=== PATIENT | female | born 1960 | race Caucasian/White ===

== ENCOUNTER → 2016-10-11 | Outpatient (CLI) | payer OTHER ==
[2016-10-11 09:56] LABS: ABSOLUTE EOSINOPHILS # (AUTO) 0.3 10^3/uL (0.0-0.6); ABSOLUTE LYMPHOCYTES (AUTO) 2.9 10^3/uL (0.5-4.7); ABSOLUTE MONOCYTES (AUTO) 0.5 10^3/uL (0.1-1.4); ABSOLUTE NEUT (AUTO) 4.5 10^3/uL (1.7-8.2); BASOPHILS % (AUTO) 0.6 % (0-2); EOSINOPHILS % (AUTO) 3.8 % (0-6); HEMOGLOBIN 13.4 g/dL (12.0-15.5); HGB HCT DIFFERENCE 0.2; LYMPHOCYTES % (AUTO) 35.3 % (13-45); MEAN CORPUSCULAR HEMOGLOBIN 27.8 pg (27.0-33.4); MEAN CORPUSCULAR HGB CONC 33.6 g/dL (32.0-36.0); MEAN CORPUSCULAR VOLUME 83 fl (80-97); MONOCYTES % (AUTO) 5.8 % (3-13); RED BLOOD COUNT 4.84 10^6/uL (3.72-5.28); RED CELL DISTRIBUTION WIDTH 13.7 % (11.5-14.0); SEGMENTED NEUTROPHILS % (AUTO) 54.5 % (42-78); WHITE BLOOD COUNT 8.2 10^3/uL (4.0-10.5)
[2016-10-11 10:13] LABS: ALANINE AMINOTRANSFERASE 35 U/L (9-52); ALBUMIN 4.1 g/dL (3.5-5.0); ALKALINE PHOSPHATASE 80 U/L (38-126); ANION GAP 11 (5-19); ASPARTATE AMINO TRANSFERASE 18 U/L (14-36); BILIRUBIN,TOTAL 0.4 mg/dL (0.2-1.3); BLOOD UREA NITROGEN 20 mg/dL (7-20); CALCIUM 10.1 mg/dL (8.4-10.2); CARBON DIOXIDE 25 mmol/L (22-30); CHLORIDE 104 mmol/L (98-107); CHOLESTEROL 219.25 mg/dL (0-200); CREATININE RESULT 0.75 mg/dL (0.52-1.25); Direct HDL 49 mg/dL (>40); GLUCOSE 113 mg/dL (75-110); POTASSIUM 4.5 mmol/L (3.6-5.0); SODIUM 140.2 mmol/L (137-145); TOTAL PROTEIN 7.7 g/dL (6.3-8.2); TRIGLYCERIDES 175 mg/dL (<150)
[2016-10-11 10:24] LABS: DIRECT LDL 148 mg/dL (<100)
[2016-10-11 10:29] LABS: FREE T3 3.65 pg/mL (2.77-5.27)
[2016-10-11 10:43] LABS: THYROID STIMULATING HORMONE 1.88 uIU/mL (0.47-4.68)
== END ==
LOC: LAB 09:17
PROVIDERS: ATTEND Family Medicine
DX: D64.9 Anemia, unspecified (principal); Z13.1 Encounter for screening for diabetes mellitus; E78.5 Hyperlipidemia, unspecified; E03.9 Hypothyroidism, unspecified; R73.09 Other abnormal glucose
CPT/HCPCS: 36415; 80048; 80061; 80076; 83036; 84439; 84443; 84481; 85025

== ENCOUNTER 2020-02-19 02:40 | Emergency (ER) | payer OTHER ==
[2020-02-19] MEDS ORDERED: ONDANSETRON HCL INJ/PF 4 MG/2 ML SDV IV ONE (04:24)
[2020-02-19 04:27] LABS: ABSOLUTE EOSINOPHILS # (AUTO) 0.1 10^3/uL (0.0-0.6); ABSOLUTE LYMPHOCYTES (AUTO) 2.3 10^3/uL (0.5-4.7); ABSOLUTE MONOCYTES (AUTO) 0.5 10^3/uL (0.1-1.4); ABSOLUTE NEUT (AUTO) 12.4 10^3/uL (1.7-8.2); BASOPHILS % (AUTO) 0.2 % (0-2); EOSINOPHILS % (AUTO) 0.4 % (0-6); HEMATOCRIT 39.1 % (36.0-47.0); HEMOGLOBIN 13.1 g/dL (12.0-15.5); LYMPHOCYTES % (AUTO) 14.9 % (13-45); MEAN CORPUSCULAR HEMOGLOBIN 27.9 pg (27.0-33.4); MEAN CORPUSCULAR HGB CONC 33.6 g/dL (32.0-36.0); MEAN CORPUSCULAR VOLUME 83 fl (80-97); MONOCYTES % (AUTO) 3.5 % (3-13); PLATELET COUNT 331 10^3/uL (150-450); RED BLOOD COUNT 4.71 10^6/uL (3.72-5.28); RED CELL DISTRIBUTION WIDTH 13.4 % (11.5-14.0); TOTAL CELLS COUNTED % (AUTO) 100 %; WHITE BLOOD COUNT 15.3 10^3/uL (4.0-10.5)
[2020-02-19 04:36] LABS: APPEARANCE,URINE CLEAR; BILIRUBIN,URINE NEGATIVE (NEGATIVE); COLOR,URINE YELLOW; GLUCOSE, URINE NEGATIVE (NEGATIVE); KETONES,URINE NEGATIVE (NEGATIVE); LEUKOCYTE ESTERASE,URINE TRACE (NEGATIVE); NITRITE,URINE NEGATIVE (NEGATIVE); PROTEIN,URINE 100 mg/dL (NEGATIVE); UROBILINOGEN,URINE NEGATIVE mg/dL (<2.0)
[2020-02-19 04:51] LABS: ALBUMIN 4.8 g/dL (3.5-5.0); ALKALINE PHOSPHATASE 67 U/L (38-126); ANION GAP 9 (5-19); ASPARTATE AMINO TRANSFERASE 21 U/L (14-36); BILIRUBIN,TOTAL 0.2 mg/dL (0.2-1.3); BLOOD UREA NITROGEN 15 mg/dL (7-20); CARBON DIOXIDE 26 mmol/L (22-30); CHLORIDE 102 mmol/L (98-107); GLUCOSE 165 mg/dL (75-110); POTASSIUM 4.5 mmol/L (3.6-5.0); TOTAL PROTEIN 7.9 g/dL (6.3-8.2)
[2020-02-19] MEDS ORDERED: NORMAL SALINE 1000 ML 1,000 ML IV ONE (05:54)
[2020-02-19] MEDS ORDERED: MORPHINE SULFATE 10 MG/ML INJ IV ONE ×2 (05:57→08:50)
--- NOTE | 2020-02-19 05:59 | ER Document Report ---
ED GI/ - General Mode of Arrival: Ambulatory Information source: Patient TRAVEL OUTSIDE OF THE [place] IN LAST 30 DAYS: No - HPI Patient complains to provider of: Abdominal pain, Other - Nausea but no vomiting Onset: Other - About 1130 Timing/Duration: Gradual, Persistent Quality of pain: Sharp Severity at maximum: Severe Severity in ED: Severe Pain Level: 5 Location: Epigastric, LUQ, LLQ, RUQ, RLQ Vaginal bleeding (Compared to normal period): None Menstrual period history: Post-menopausal - And hysterectomy Associated symptoms: Nausea. denies: Vomiting Exacerbated by: Movement Relieved by: Denies Similar symptoms previously: No Recently seen / treated by doctor: No <MARLO BALES - Last Filed: 02/19/20 05:55> <OBED PUENTES - Last Filed: 02/19/20 11:35> - General Chief Complaint: Abdominal Pain Stated Complaint: EPIGASTRIC PAIN Time Seen by Provider: 02/19/20 05:17 Primary Care Provider: LUCINA BEARD MD [Primary Care Provider] - Follow up as needed Notes: 59-year-old female presented to ED for complaint of severe sharp abdominal pain. She states it began about 1130 last night. She states that she ate about lasagna about 330 4:00 in the afternoon and then ate a snack chips at suppertime and then the pain started about 1130. She states the pain is not gotten any better she has felt nauseated a couple times has not vomited has not had any fevers chills or any difficulty with urination. She states she did have a loose stool yesterday but no stools today. (MARLO BALES) - Related Data Allergies/Adverse Reactions: No Known Allergies Allergy (Unverified 02/19/20 03:41) Past Medical History - General Information source: Patient - Social History Smoking Status: Never Smoker Chew tobacco use (# tins/day): No Frequency of alcohol use: Social Drug Abuse: None Lives with: Family Family History: Reviewed & Not Pertinent Patient has homicidal ideation: No - Past Medical History Cardiac Medical History: Reports: None Pulmonary Medical History: Reports: None EENT Medical History: Reports: None Neurological Medical History: Reports: None Endocrine Medical History: Reports: Hx Hypothyroidism Renal/ Medical History: Reports: None Malignancy Medical History: Reports: Hx Skin Cancer - Basal cell GI Medical History: Reports: Hx Colonoscopy Musculoskeletal Medical History: Reports Hx Arthritis, Reports Hx Musculoskeletal Trauma Skin Medical History: Reports None Psychiatric Medical History: Reports: None Traumatic Medical History: Reports: Hx Fractures - Toe Infectious Medical History: Reports: None Past Surgical History: Reports: Hx Hysterectomy, Hx Tubal Ligation <MARLO BALES Filed: 02/19/20 05:55> Review of Systems - Review of Systems Constitutional: No symptoms reported EENT: No symptoms reported Cardiovascular: No symptoms reported Respiratory: No symptoms reported Gastrointestinal: Abdominal pain, Nausea. denies: Vomiting Genitourinary: No symptoms reported Female Genitourinary: No symptoms reported Musculoskeletal: No symptoms reported Skin: No symptoms reported Hematologic/Lymphatic: No symptoms reported Neurological/Psychological: No symptoms reported -: Yes All other systems reviewed and negative <MARLO BALES Filed: 02/19/20 05:55> Physical Exam - Vital signs Interpretation: Normal - General General appearance: Appears well, Alert - HEENT Head: Normocephalic, Atraumatic Eyes: Normal Pupils: PERRL - Respiratory Respiratory status: No respiratory distress Chest status: Nontender Breath sounds: Normal Chest palpation: Normal - Cardiovascular Rhythm: Regular Heart sounds: Normal auscultation Murmur: No - Abdominal Inspection: Normal Distension: Distended - Mild Bowel sounds: Normal Tenderness: Tender - Generalized Organomegaly: No organomegaly - Back Back: Normal, Nontender - Extremities General upper extremity: Normal inspection, Nontender, Normal color, Normal ROM, Normal temperature General lower extremity: Normal inspection, Nontender, Normal color, Normal ROM, Normal temperature, Normal weight bearing. No: Ok's sign - Neurological Neuro grossly intact: Yes Cognition: Normal Orientation: AAOx4 Shayne Coma Scale Eye Opening: Spontaneous Shayne Coma Scale Verbal: Oriented [place]rop Coma Scale Motor: Obeys Commands Shayne Coma Scale Total: 15 Speech: Normal Motor strength normal: LUE, RUE, LLE, RLE Sensory: Normal - Psychological Associated symptoms: Normal affect, Normal mood - Skin Skin Temperature: Warm Skin Moisture: Dry Skin Color: Normal <MARLO BALES Filed: 02/19/20 05:55> - Vital signs Vitals: Temp Pulse Resp BP Pulse Ox 97.5 F 65 18 166/88 H 97 06/28/20 03:38 02/19/20 03:38 02/19/20 03:38 02/19/20 03:38 02/19/20 03:38 Course - Laboratory Result Diagrams: 02/19/20 04:13 02/19/20 04:13 <MARLO BALES - Last Filed: 02/19/20 05:55> - Laboratory Result Diagrams: 02/19/20 04:13 02/19/20 04:13 <OBED PUENTES - Last Filed: 02/19/20 11:35> - Re-evaluation Re-evalutation: 02/19/20 08:15 report received on the patient 02/19/20 08:50 Report received on the patient. I went to evaluate the patient initially she was in CT, when she was back in the room I did examine her. She reports onset of generalized abdominal pain around 11 PM last night with nausea vomiting. Pain is now focal in the epigastric right upper quadrant region. On exam she is tender in the right upper quadrant specifically. On my review of the patient CT it does appear that she has cholelithiasis. Awaiting official radiology read. Will obtain ultrasound to evaluate for an obstructing stone although her liver functions and lipase are normal. She does have a mild leukocytosis. She is still reporting pain will re-dose pain medication at this time 02/19/20 10:53 Patient is more comfortable at this time. Ultrasound shows cholelithiasis without evidence of cholecystitis. I spoke with the patient about this at length. She is comfortable with the plan to be discharged home to follow-up outpatient with surgery with return instructions given (OBED PUENTES) - Vital Signs Vital signs: Temp Pulse Resp BP Pulse Ox 97.5 F 84 20 122/80 95 02/19/20 03:38 02/19/20 06:54 02/19/20 06:54 02/19/20 06:54 02/19/20 06:54 - Laboratory Laboratory results interpreted by me: 02/19/20 02/19/20 02/19/20 04:13 04:13 04:13 WBC 15.3 H Absolute Neuts (auto) 12.4 H Seg Neutrophils % 81.0 H Glucose 165 H Urine Protein 100 H Urine Blood MODERATE H Ur Leukocyte Esterase TRACE H Discharge <MARLO BALES - Last Filed: 02/19/20 05:55> <OBED PUENTES - Last Filed: 02/19/20 11:35> - Discharge Clinical Impression: Abdominal pain, right upper quadrant Cholelithiasis Qualifiers: Cholelithiasis location: gallbladder Cholecystitis presence: without cholecystitis Biliary obstruction: without biliary obstruction Qualified Code(s): K80.20 - Calculus of gallbladder without cholecystitis without obstruction Condition: Stable Disposition: HOME, SELF-CARE Additional Instructions: Avoid greasy or spicy foods. Follow-up closely with surgery clinic for reevaluation call for appointment. Pain medications as prescribed no driving if taking narcotics for pain. It was noted on your exam today that you do have gallstones and this is likely causing her discomfort. If you have recurrent pain that is uncontrolled by the medications prescribed or develop a fever return for reevaluation Prescriptions: Hydrocodone/Acetaminophen [[place] 5-325 mg Tablet] 1 tab PO Q4 PRN #15 tablet PRN Reason: Ondansetron [Zofran Odt 4 mg Tablet] 1 - 2 tab PO Q4H PRN #15 tab.rapdis PRN Reason: For Nausea/Vomiting Referrals: LUCINA BEARD MD [Primary Care Provider] - Follow up as needed ELVIS MARTE MD [ACTIVE STAFF] - Follow up as needed
--- NOTE | 2020-02-19 08:54 | RADIOLOGY REPORT (SQ) ---
EXAM DESCRIPTION: CT ABD/PELVIS WITH IV ORAL IMAGES COMPLETED DATE/TIME: 02/19/2020 8:34 am REASON FOR STUDY: abdominal pain nausea vomiting COMPARISON: None. TECHNIQUE: CT scan of the abdomen and pelvis performed with intravenous and oral contrast using westley kely scanning technique with dynamic intravenous contrast injection. Images reviewed with lung, soft t issue, and bone windows. Reconstructed coronal and sagittal MPR images reviewed. Delayed images for e valuation of the urinary system also acquired. All images stored on PACS. All CT scanners at this facility use dose modulation, iterative reconstruction, and/or weight based d osing when appropriate to reduce radiation dose to as low as reasonably achievable (ALARA). [facility]: Dose Right [facility]: CareDose [facility]: Dose Right [facility]: Teradose 4D [facility]: Ads-Fi CONTRAST TYPE AND DOSE: contrast/concentration: Isovue 350.00 mmol/ml; Total Contrast Delivered: 98. 0 ml; Total Saline Delivered: 72.0 ml RENAL FUNCTION: GFR > 60. RADIATION DOSE: CT Rad equipment meets quality standard of care and radiation dose reduction techniq ues were employed. CTDIvol: 13.5 - 17.4 mGy. DLP: 1791 mGy-cm.. LIMITATIONS: None. FINDINGS: LOWER CHEST: Cardiomegaly. Motion artifact and subsegmental atelectasis possible 6 x 11 m m lingular nodule, image /38. LIVER: Fatty without mass. SPLEEN: Normal size. No focal lesions. PANCREAS: Variable fatty atrophy. No active inflation or duct dilatation or mass. GALLBLADDER: Distended without wall thickening. 3 cm faintly calcified gallstone. ADRENAL GLANDS: No significant masses or asymmetry. RIGHT KIDNEY AND URETER: No solid masses. No significant calcification. No hydronephrosis or hydroure ter. LEFT KIDNEY AND URETER: No solid masses. No significant calcification. No hydronephrosis or hydrouret er. AORTA AND VESSELS: No aneurysm. No dissection. Renal arteries, SMA, celiac without stenosis. No veno us clot suggested. RETROPERITONEUM: No enlarged nodes. Shotty retroperitoneal subcentimeter scattered nodes. Doubtful significance. BOWEL AND PERITONEAL CAVITY: Cecum distended with a large amount of stool. No gross mass. No inflam matory changes. No evidence of bowel obstruction or ascites or abnormal gas. APPENDIX: Normal. PELVIS: No significant masses. Normal bladder. No free fluid. ABDOMINAL WALL: No masses. No hernias. BONES: No significant or acute findings. OTHER: No other significant finding. IMPRESSION: 1. No acute abdominopelvic abnormality. 2. Cholelithiasis. TECHNICAL DOCUMENTATION: JOB ID: [id number] Quality ID # [id number]: Final reports with documentation of one or more dose reduction techniques (e.g., Au tomated exposure control, adjustment of the mA and/or kV according to patient size, use of iterative reconstruction technique) 2010 [employer]- All Rights Reserved Reading location - IP/workstation name: [email or web address]
--- NOTE | 2020-02-19 10:48 | RADIOLOGY REPORT (SQ) ---
EXAM DESCRIPTION: U/S ABDOMEN LIMITED W/O DOP IMAGES COMPLETED DATE/TIME: 02/19/2020 10:33 am REASON FOR STUDY: upper abd pain COMPARISON: CT abdomen and pelvis 02/19/2020. TECHNIQUE: Static grayscale images acquired of the abdomen and recorded on PACS. Additional selected color Doppler and spectral images recorded. LIMITATIONS: Bowel-gas. FINDINGS: PANCREAS: Obscured by overlying bowel gas. LIVER: The liver measures 17.5 cm. There is increased echogenicity of the liver parenchyma suggestiv e of fatty infiltration. LIVER VASCULATURE: Normal directional flow of the main portal vein. GALLBLADDER: There is a 2.3 cm shadowing calculus. Normal wall thickness. No pericholecystic fluid. ULTRASOUND-DETECTED ECKERT'S SIGN: Negative. INTRAHEPATIC DUCTS AND COMMON DUCT: No intrahepatic biliary ductal dilation is identified. The commo n bile duct is not visualized, obscured by overlying bowel gas. INFERIOR VENA CAVA: Not well visualized, obscured by overlying bowel gas. AORTA: No aneurysm at the visualized segments. RIGHT KIDNEY: The right kidney measures 9.6 and. Normal echogenicity. No hydronephrosis. No calcific ations. PERITONEAL AND RIGHT PLEURAL SPACE: No ascites or effusions. IMPRESSION: 1. Cholelithiasis with no other sonographic evidence for acute cholecystitis. 2. Fatty infiltration of the liver. 3. Obscured pancreas. TECHNICAL DOCUMENTATION: JOB ID: [id number] OH-64 2010 [employer]- All Rights Reserved Reading location - IP/workstation name: [email or web address]
[2020-02-19 11:49] VITALS: BP 153/93
== END 2020-02-19 11:49 | disposition home or self-care (01) ==
LOC: ER 02:40
DX: K80.20 Calculus of gallbladder without cholecystitis without obstruction (principal); R10.11 Right upper quadrant pain; R11.2 Nausea with vomiting, unspecified; R10.12 Left upper quadrant pain; R10.31 Right lower quadrant pain; R10.32 Left lower quadrant pain; R10.13 Epigastric pain
CPT/HCPCS: 96376; 99284; 96361; 96374; 96375; 36415; 87086; 83690; 85025; 80053; 81001; 76705; 74177; J2270; J2405; J7030

== ENCOUNTER 2020-02-22 05:21 | Day surgery (SDC) | payer OTHER ==
[~2020-02-22 05:21] MED LIST: CEFAZOLIN 1 GM/D5W RTU 1 GM/50 ML RTUPB IV ONE
[2020-02-22] MEDS ORDERED: FENTANYL CITRATE INJ/PF 100 MCG/2 ML AMPUL ONE (06:51)
[2020-02-22] MEDS ORDERED: MIDAZOLAM 2 MG/2 ML INJ ONE (06:51)
[2020-02-22] MEDS ORDERED: DEXAMETHASONE SOD PHOSPHATE INJ 4 MG/1 ML VIAL ONE (06:51)
[2020-02-22] MEDS ORDERED: KETOROLAC TROMETHAMINE 60 MG/2 ML SDV ONE (06:51)
[2020-02-22] MEDS ORDERED: ONDANSETRON HCL INJ/PF 4 MG/2 ML SDV ONE (06:51)
[2020-02-22] MEDS ORDERED: PROPOFOL INJ 200 MG/20 ML VIAL IV ONE (06:52)
[2020-02-22] MEDS ORDERED: BUPIVACAINE HCL 0.25 % INJ/PF (2.5 MG/1 ML) 30 ML VIAL ONE (07:06)
[2020-02-22] MEDS ORDERED: MORPHINE SULFATE 10 MG/ML INJ IV PRN (07:49)
[2020-02-22] MEDS ORDERED: MEPERIDINE HCL/PF INJ 25 MG/1 ML DISP.SYRIN IV PRN (07:49)
[2020-02-22] MEDS ORDERED: PROMETHAZINE HCL INJ 25 MG/1 ML VIAL IV PRN ×2 (07:49)
[2020-02-22] MEDS ORDERED: FENTANYL CITRATE INJ/PF 100 MCG/2 ML AMPUL IV PRN ×3 (07:49)
[2020-02-22] MEDS ORDERED: ONDANSETRON HCL INJ/PF 4 MG/2 ML SDV IV PRN (07:49)
[2020-02-22] MEDS ORDERED: OXYCODONE-ACETAMINOPHEN 5-325 MG TABLET PO PRN ×2 (07:49)
[2020-02-22] MEDS ORDERED: DIPHENHYDRAMINE HCL 50 MG/ML VIAL IV PRN (07:49)
--- NOTE | 2020-02-22 09:10 | Discharge Summary ---
Discharge Summary (SDC) - Discharge Final Diagnosis: Acute cholecystitis with cholelithiasis Date of Surgery: 02/22/20 Discharge Date: 02/22/20 Condition: Good Treatment or Instructions: Teach patient drain care; patient to return to office February 22 for drain removal, Dr. Tran; patient to take Toradol as needed pain. Patient may shower when drain out Referrals: LUCINA BEARD MD [Primary Care Provider] - Discharge Diet: As Tolerated Discharge Activity: Activity As Tolerated Home Care Assistance: None Needed Report the Following to Your Physician Immediately: Shortness of Breath, Increase in Pain, Fever over 101 Degrees - Discharge patient home when criteria met; teach drain care; Toradol prescription for pain; may alternate with Motrin and Tylenol
--- NOTE | 2020-02-22 09:18 | Operative Report ---
Operative Report DATE OF SURGERY: 02/22/20 PREOPERATIVE DIAGNOSIS: Acute cholecystitis with cholelithiasis POSTOPERATIVE DIAGNOSIS: Same OPERATION: 1. Laparoscopic cholecystectomy. 2. Placement of subhepatic drain. 3. Extremely difficult modifier SURGEON: ELVIS MARTE ANESTHESIA: GA TISSUE REMOVED OR ALTERED: 1 gallbladder with contents COMPLICATIONS: None ESTIMATED BLOOD LOSS: 150 cc INTRAOPERATIVE FINDINGS: See below PROCEDURE: After obtaining informed consent, the patient was taken to the operating room. General Anesthesia was induced; the arms were extended, and the abdomen was exposed, and prepped and draped in a sterile fashion. Instrumentation was set up for laparoscopic cholecystectomy. Surgical plan and surgical timeout were conducted. A vertical incision was made above the umbilicus, and a verres needle was inserted uneventfully into the peritoneal cavity. Pneumoperitoneum was established. The verres needle was removed and a 5 mm trocar was inserted and a 5 mm flexible laparoscope was inserted. Visualization of the peritoneal cavity confirmed safe uneventful entry. Under direct visualization 3 additional 5 mm ports were established, one in the subxiphoid position and second in the subcostal position. There was no evidence of vascular or visceral injury due to port placement. Findings are significant for an acutely inflamed gallbladder, distended, acutely. It was aspirated of approximately 50 cc of bile. Graspers were now placed on the fundus and infundibulum. A 5th port was installed in the left mid quadrant, and fan retractor used to pull the omentum down from the subhepatic space. Adhesions between the gallbladder, and omentum were taken down using a combination of hook and blunt dissection. Eventually we did have the infundibulum of the gallbladder freed up. A second grasper was placed on the infundibulum. The dissection was tedious and time-consuming. Eventually we had the cystic duct, cystic artery, and node of Calot low all dissected out. Multiple photos were taken. The cystic artery was clipped twice proximally once distally divided with scissors. We opened up the lateral and medial sides of the reflection freeing up the gallbladder at its neck, and obtaining the critical view. Multiple photos were taken. The cystic duct was visualized poorly. It was clipped twice proximally once distally and divided with scissors. We now remove the gallbladder from the liver bed using hook cautery dissection. This took approximately 30 minutes. Entire operation took more than an hour. There was a significant amount of adhesions, edema, and bleeding. Eventually the gallbladder was freed from the liver bed, placed in a large Endobag and brought out of the patient through the supraumbilical port site after extending the fascial defect. The specimen was passed off to pathology. We returned the peritoneal cavity and check for mechanical bleeding and there appeared to be no definitive arterial site, most of bleeding coming from the inferior surface of the liver. Surgicel was placed on the wall surface of the liver. Large Alo drain was placed through 1 of the lateral sub-costal port sites, secured to the skin with 2-0 Prolene suture. We irrigated the peritoneal cavity out, and felt that the bleeding was now slowing down nicely. Sponge and counts are correct. We felt the operation was complete. We returned to the peritoneal cavity check for bleeding, and evidence of bile leak, and there was none. We Confirmed satisfactory placement of clips on cystic duct and cystic artery were secured . We leveled the patient out and observe the subhepatic space and again felt the bleeding had now subsided substantially. No further intervention was taken. All ports were removed, and the supraumbilical fascial defect was closed with multiple [id number] and interrupted #1 PDS sutures. Then closed the 5 mm port wounds with 3-0 Vicryl suture, benzoin and Steri-Strips. Drain was hooked to bulb suction The patient was extubated, and taken to the recovery room in stable condition. Extremely difficult modifier used because of the increased length of time to complete the operation, the adhesions, acute inflammation, and the massive size of the gallbladder measuring it approximately 16 cm in length.
[2020-02-22] MEDS ORDERED: VECURONIUM BROMIDE INJ 10 MG VIAL IV ONE (11:24)
[2020-02-22] MEDS ORDERED: SUCCINYLCHOLINE CHLORIDE INJ 200 MG/10 ML VIAL ONE (11:24)
[2020-02-22 11:27] VITALS: BP 133/76
== END 2020-02-22 11:00 | disposition home or self-care (01) ==
LOC: OROUT 05:21
PROVIDERS: ATTEND Surgery
DX: K80.12 Calculus of gallbladder with acute and chronic cholecystitis without obstruction (principal); K82.8 Other specified diseases of gallbladder; Z88.2 Allergy status to sulfonamides; G47.30 Sleep apnea, unspecified; E03.9 Hypothyroidism, unspecified; Z85.828 Personal history of other malignant neoplasm of skin; Z86.010 Personal history of colon polyps; Z79.899 Other long term (current) drug therapy
CPT/HCPCS: 87635; 88304 ×2; 47564; J2250; J0690; J1100; J1885; J3010; J2405; J2704; C9803; 790; J0330; J3490

== ENCOUNTER 2020-05-16 19:15 | Emergency (ER) | payer OTHER ==
--- NOTE | 2020-05-16 20:26 | ER Document Report ---
ED Respiratory Problem - General Chief Complaint: Shortness Of Breath Stated Complaint: SHORTNESS OF BREATH Time Seen by Provider: 05/16/20 20:03 Primary Care Provider: LUCINA BEARD MD [Primary Care Provider] - Follow up in 3-5 days Notes: Patient is a 60 year old female that comes to the emergency department for chief complaint of shortness of breath. Patient states she had a positive COVID-19 test on Thursday, approximately 6 days ago, she states that she had fever, cough, sore throat, generalized weakness. She states that she keeps getting intermittent episodes of shortness of breath, dyspnea on exertion, and she feels that at this point she should have already gotten over this. She states that she has not gotten particularly worse over the past couple of days. She denies chest pain, nausea, vomiting, abdominal pain, headache, difficulty swallowing. She states she was exposed to daycare and her coworkers have a COVID-19 as well. Patient denies smoking, asthma, COPD, or cardiac history. Past medical history of hypothyroidism, hyperlipidemia, anxiety/depression, cholecystectomy, tubal ligation. She denies personal family history of blood clot. She denies recent travel, surgery, or lower extremity swelling. TRAVEL OUTSIDE OF THE [place] IN LAST 30 DAYS: No - Related Data Allergies/Adverse Reactions: shellfish derived Allergy (Verified 02/22/20 05:41) shrimp Allergy (Verified 02/22/20 05:41) Sulfa (Sulfonamide Antibiotics) Allergy (Verified 02/22/20 05:41) Home Medications: Venlafaxine 75mg, Levothyroxine 112mg, prempro 0.3 mg Past Medical History - General Information source: Patient - Social History Smoking Status: Never Smoker Frequency of alcohol use: Occasional Drug Abuse: None Lives with: Family Family History: Reviewed & Not Pertinent - Past Medical History Cardiac Medical History: Denies: Hx Coronary Artery Disease, Hx Heart Attack, Hx Hypertension Pulmonary Medical History: Denies: Hx Asthma, Hx Bronchitis, Hx COPD, Hx Pneumonia Neurological Medical History: Denies: Hx Cerebrovascular Accident, Hx Seizures Endocrine Medical History: Reports: Hx Hypothyroidism Malignancy Medical History: Reports: Hx Skin Cancer - Basal cell GI Medical History: Reports: Hx Colonoscopy Musculoskeletal Medical History: Reports Hx Arthritis, Reports Hx Musculoskeletal Trauma Psychiatric Medical History: Reports: Hx Depression Traumatic Medical History: Reports: Hx Fractures - Toe Past Surgical History: Reports: Hx Cholecystectomy, Hx Hysterectomy, Hx Tubal Ligation - Immunizations Hx Diphtheria, Pertussis, Tetanus Vaccination: Yes Review of Systems - Review of Systems Constitutional: See HPI EENT: No symptoms reported Cardiovascular: No symptoms reported Respiratory: See HPI Gastrointestinal: No symptoms reported Genitourinary: No symptoms reported Female Genitourinary: No symptoms reported Musculoskeletal: No symptoms reported Skin: No symptoms reported Hematologic/Lymphatic: No symptoms reported Neurological/Psychological: No symptoms reported Physical Exam - Vital signs Vitals: Temp Pulse Resp BP Pulse Ox 98.2 F 103 H 24 H 134/88 H 100 05/16/20 19:50 05/16/20 19:50 05/16/20 19:50 05/16/20 19:50 05/16/20 19:50 - Notes Notes: GENERAL: Alert, interacts well. No acute distress. HEAD: Normocephalic, atraumatic. EYES: Pupils equal, round, and reactive to light. Extraocular movements intact. ENT: Oral mucosa moist, tongue midline. Oropharynx unremarkable. Airway patent. Nares patent, sinuses non-tender, ear canals unremarkable, TM's intact. NECK: Full range of motion. Supple. Trachea midline. No lymphadenopathy. LUNGS: Clear to auscultation bilaterally, no wheezes, rales, or rhonchi. No respiratory distress. Non-tender chest wall. HEART: Regular rate and rhythm. No murmur ABDOMEN: Soft, non-tender. Non-distended. EXTREMITIES: Moves all 4 extremities spontaneously. No edema, normal radial and dorsalis pedis pulses bilaterally. No cyanosis. BACK: no cervical, thoracic, lumbar midline tenderness. No saddle anesthesia, normal distal neurovascular exam. Moves all extremities in full range of motion. NEUROLOGICAL: Alert and oriented x3. Normal speech. Cranial nerves II through XII grossly intact. Strength 5/5 in all extremities. PSYCH: Patient speaks slightly anxiously and occasionally stutters SKIN: Warm, dry, normal turgor. No rashes or lesions noted. Course - Re-evaluation Re-evalutation: Patient is talkative, alert, well-appearing. She appears mildly anxious. Lungs clear, no tachypnea or labored breathing, however patient persists that she has a vague feeling of shortness of breath. She is able to ambulate without dif ficulty. CBC unremarkable, chemistry unremarkable, troponin is not elevated. D-dimer is slightly positive. Chest x-ray showing possible pneumonia. Because of patient's symptoms, positive COVID-19 testing, elevated d-dimer, CTA will be performed, this was discussed with patient at length. CTA is negative for pulmonary embolism but does indicate what appears to be bilateral pneumonia most suggestive of COVID-19 given patient's history and presentation. Because patient does not have any concerning vital signs, no difficulty breathing, no other concerning findings, discussed with patient, she will be given dexamethasone, she will be placed on azithromycin, she will have strict return precautions and she will be discharged at this time. Patient states appreciation and agreement. Stable and well-appearing at time of discharge. - Vital Signs Vital signs: Temp Pulse Resp BP Pulse Ox 98.2 F 89 20 137/87 H 98 05/16/20 23:30 05/16/20 23:30 05/16/20 23:30 05/16/20 23:30 05/16/20 23:30 - Laboratory Result Diagrams: 05/16/20 20:35 05/16/20 20:35 Laboratory results interpreted by me: 05/16/20 05/16/20 05/16/20 20:35 20:35 20:35 RDW 14.5 H D-Dimer 0.51 H Glucose 129 H AST 56 H ALT 51 H - EKG Interpretation by Me Additional EKG results interpreted by me: EKG shows sinus rhythm at a rate of 94, QTc 451, left axis deviation. No T wave inversions or ST segment changes in consecutive leads Discharge - Discharge Clinical Impression: Shortness of breath, COVID-19 Pneumonia Qualifiers: Pneumonia type: due to unspecified organism Laterality: bilateral Lung location: unspecified part of lung Qualified Code(s): J18.9 - Pneumonia, unspecified organism Condition: Stable Disposition: HOME, SELF-CARE Additional Instructions: Your imaging shows that you have pneumonia, most likely pneumonia from COVID-19. The remaining work-up is reassuring. You have been treated with Decadron here, we are placing her on azithromycin, please take as prescribed. Drink plenty of fluids and rest. Follow-up with primary care. Please continue to quarantine while you are being treated for COVID-19. Return if you worsen in any way including spiking fevers, difficulty breathing, chest pain, or any other concerning or worsening symptoms. Prescriptions: Azithromycin [Zithromax 250 mg Tablet] 250 mg PO ASDIR PRN #4 tablet PRN Reason: Forms: Return to Work Referrals: LUCINA BEARD MD [Primary Care Provider] - Follow up in 3-5 days
[2020-05-16 20:45] LABS: ABSOLUTE EOSINOPHILS # (AUTO) 0.2 10^3/uL (0.0-0.6); ABSOLUTE LYMPHOCYTES (AUTO) 1.7 10^3/uL (0.5-4.7); ABSOLUTE MONOCYTES (AUTO) 0.6 10^3/uL (0.1-1.4); ABSOLUTE NEUT (AUTO) 3.6 10^3/uL (1.7-8.2); BASOPHILS % (AUTO) 0.3 % (0-2); EOSINOPHILS % (AUTO) 2.6 % (0-6); HEMATOCRIT 37.5 % (36.0-47.0); HEMOGLOBIN 12.9 g/dL (12.0-15.5); LYMPHOCYTES % (AUTO) 27.4 % (13-45); MEAN CORPUSCULAR HEMOGLOBIN 27.7 pg (27.0-33.4); MEAN CORPUSCULAR HGB CONC 34.5 g/dL (32.0-36.0); MEAN CORPUSCULAR VOLUME 81 fl (80-97); MONOCYTES % (AUTO) 10.3 % (3-13); PLATELET COUNT 264 10^3/uL (150-450); RED BLOOD COUNT 4.66 10^6/uL (3.72-5.28); RED CELL DISTRIBUTION WIDTH 14.5 % (11.5-14.0); SEGMENTED NEUTROPHILS % (AUTO) 59.4 % (42-78); TOTAL CELLS COUNTED % (AUTO) 100 %
[2020-05-16 20:59] LABS: ALBUMIN 4.3 g/dL (3.5-5.0); ALKALINE PHOSPHATASE 115 U/L (38-126); ANION GAP 11 (5-19); ASPARTATE AMINO TRANSFERASE 56 U/L (14-36); BILIRUBIN,DIRECT 0.3 mg/dL (0.0-0.4); BILIRUBIN,TOTAL 0.5 mg/dL (0.2-1.3); BLOOD UREA NITROGEN 12 mg/dL (7-20); CALCIUM 8.8 mg/dL (8.4-10.2); CARBON DIOXIDE 28 mmol/L (22-30); CHLORIDE 100 mmol/L (98-107); GLUCOSE 129 mg/dL (75-110); POTASSIUM 4.4 mmol/L (3.6-5.0); TOTAL PROTEIN 7.1 g/dL (6.3-8.2)
[2020-05-16 21:11] LABS: NT PRO BNP 77 pg/mL (<125)
[2020-05-16 21:13] LABS: TROPONIN I < 0.012 ng/mL
--- NOTE | 2020-05-16 22:37 | RADIOLOGY REPORT (SQ) ---
CLINICAL INDICATION: shortness of breath, +COVID. TECHNIQUE: A single portable AP view was obtained of the chest at 2141 hours. COMPARISON: March 19, 2016. FINDINGS: The cardiomediastinal silhouette is enlarged with an LVH configuration. The lungs demonstrate progressive patchy airspace disease left midlung zone. No evidence of effusion or pneumothorax. The visualized bones are unremarkable. IMPRESSION: Progressive patchy airspace disease left midlung zone and perhaps right midlung zone. Presumed pneumonia.
--- NOTE | 2020-05-16 23:25 | RADIOLOGY REPORT (SQ) ---
CLINICAL INDICATION: + COVID, short of breath, positive D-Dimer 0.51. . TECHNIQUE: CT arteriography was obtained of the chest with multiplanar MIP and/or 3-D angiographic reconstructions. This exam was performed according to our departmental dose-optimization program, which includes automated exposure control, adjustment of the mA and/or kV according to patient size and/or use of iterative reconstruction techniques. COMPARISON: None. CORRELATION: None. FINDINGS: Heterogeneous contrast bolus. Average Hounsfield unit measurement within main pulmonary artery segment of 314. Artifact from venous opacification. Motion artifact There is no central pulmonary embolus. Branch vessels are difficult to assess given motion. Thoracic aorta is of normal caliber. The heart is top normal. No pericardial effusion. No bulky mediastinal adenopathy. The lungs demonstrate patchy areas of interstitial and alveolar space disease bilaterally. This is a pattern consistent with reported known diagnosis of Covid 19. No effusion. No pneumothorax. Detail obscured by motion. Visualized abdominal contents demonstrate hepatic steatosis. Gallbladder surgically absent.. Visualized bones are unremarkable. IMPRESSION: Imaging is degraded by patient motion, with resultant artifact. The best possible images were obtained. No central pulmonary embolus. Patchy areas of parenchymal lung disease bilaterally in a pattern consistent with the known diagnosis of Covid 19. Commonly reported imaging features of COVID pneumonia are present. Other processes such as influenza pneumonia and organizing pneumonia, as can be seen with drug toxicity and connective tissue disease, can cause similar imaging pattern. [PneTyp] .
[2020-05-16] MEDS ORDERED: AZITHROMYCIN 250 MG TABLET PO ONE (23:30)
[2020-05-16] MEDS ORDERED: DEXAMETHASONE SOD PHOS INJ 10 MG/1 ML VIAL IV ONE (23:30)
[2020-05-16 23:31] VITALS: BP 137/87
--- NOTE | 2020-05-17 08:32 | EKG REPORT ---
SEVERITY:- BORDERLINE ECG - SINUS RHYTHM LVH BY VOLTAGE : Confirmed by: Sameera Velazquez MD 17-May-2020 08:32:03
== END 2020-05-16 23:42 | disposition home or self-care (01) ==
LOC: ER 19:15
DX: U07.1 COVID-19 (principal); J18.9 Pneumonia, unspecified organism; R06.02 Shortness of breath
CPT/HCPCS: 93005; 99285; 96374; 36415; 85025; 80053; 84484; 85379; 83880; 71045; 71275; 93010; J1100